=== PATIENT | female | born 1960 | race African-American/Black ===

== ENCOUNTER 2019-08-12 19:12 | Emergency (ER) | payer MEDICAID ==
[~2019-08-12] VITALS: Ht 167.6 cm; Wt 77.1 kg
[2019-08-12 19:25] VITALS: BP 152/76
--- NOTE | 2019-08-12 19:25 | NUR ---
ED Nurse Note: Walk-in patient with comp Addendum: 08/12/19 at 1949 by ELLIS ED Nurse Note: Walk-in patient with complaints of chest pain and SOB x 4 days,. Patient is ambulatory with steady gait and able to void.
--- NOTE | 2019-08-12 19:43 | Emergency Room Report ---
History of Present Illness General Chief Complaint: Dyspnea/Respdistress Source: Patient Present Illness [facility] Disclaimer: Please note that this report is being documented using DRAGON technology. This can lead to erroneous entry secondary to incorrect interpretation by the dictating instrument. HPI: 59-year-old female with a history of hypertension and emphysema presents for evaluation of cough and shortness of breath. Symptoms have been present for 4 to 5 days. She notes a nonproductive cough and orthopnea as well as nasal congestion, chest congestion, sore throat. She recently returned from a trip to [place] her symptoms began before that trip however. She denies any lower extremity pain or swelling. She has not been using her albuterol inhaler. Notes worsening cough and shortness of breath particularly when lying flat. She notes intermittent left-sided chest pain that is stabbing in quality. No history of ID or CAD. Has been using [id number] herbal remedies for congestion without significant relief. Denies fevers or chills. Did not receive a flu shot this year PMH: Emphysema PSH: section, breast augmentation Allergies: Denies Social Hx: Current smoker Allergies: Coded Allergies: No Known Allergies (Unverified , 08/12/19) Patient History Last Menstrual Period: 20 years ago Review of Systems All Other Systems: negative except mentioned in HPI Physical Exam Vital Signs Date Time Temp Pulse Resp B/P (MAP) Pulse Ox O2 Delivery O2 Flow Rate FiO2 08/12/19 19:22 99.0 99 16 152/76 (101) 95 Room Air General: Awake and alert, no acute distress HEENT: NC/AT. EOMI. Cardiovascular: RRR. S1 and S2 normal. No murmur appreciated Resp: Normal work of breathing. No wheezing. Intermittent cough throughout the exam. No crackles appreciated Abdomen: Abdomen is soft, nondistended. Nontender Skin: Intact. No abrasions, laceration or rash over the exposed skin MSK: Normal tone and bulk. Moving all extremities. No obvious deformity. Neuro: Awake and alert. Mentating appropriately. Medical Decision Making Diagnostic Impression: Primary Impression: Respiratory infection ER Course 59-year-old female presents for evaluation of cough, congestion and general URI symptoms for 4 to 5 days. Given the patient's chest pain we will obtain cardiac enzymes and a chest x-ray to rule out pneumonia. She is well-appearing otherwise with stable vital signs. Laboratory Tests Test 08/12/19 19:45 White Blood Count 6.8 K/UL (4.8-10.8) Red Blood Count 4.47 M/UL (4.20-5.40) Hemoglobin 13.7 G/DL (12.0-16.0) Hematocrit 39.5 % (37.0-47.0) Mean Corpuscular Volume 88 FL (80-99) Mean Corpuscular Hemoglobin 30.7 PG (27.0-31.0) Mean Corpuscular Hemoglobin Concent 34.7 G/DL (32.0-36.0) Red Cell Distribution Width 11.2 % (11.6-14.8) L Platelet Count 216 K/UL (150-450) Mean Platelet Volume 6.7 FL (6.5-10.1) Neutrophils (%) (Auto) 56.1 % (45.0-75.0) Lymphocytes (%) (Auto) 25.6 % (20.0-45.0) Monocytes (%) (Auto) 12.2 % (1.0-10.0) H Eosinophils (%) (Auto) 3.2 % (0.0-3.0) H Basophils (%) (Auto) 2.8 % (0.0-2.0) H D-Dimer 2.65 mg/L FEU (0.00-0.49) H Sodium Level 142 MMOL/L (136-145) Potassium Level 3.7 MMOL/L (3.5-5.1) Chloride Level 106 MMOL/L (98-107) Carbon Dioxide Level 32 MMOL/L (21-32) Anion Gap 4 mmol/L (5-15) L Blood Urea Nitrogen 11 mg/dL (7-18) Creatinine 0.8 MG/DL (0.55-1.30) Estimate Glomerular Filtration Rate > 60 mL/min (>60) Glucose Level 113 MG/DL (74-106) H Calcium Level 9.2 MG/DL (8.5-10.1) Total Bilirubin 0.2 MG/DL (0.2-1.0) Aspartate Amino Transferase (AST) 24 U/L (15-37) Alanine Aminotransferase (ALT) 35 U/L (12-78) Alkaline Phosphatase 86 U/L (46-116) Troponin I 0.000 ng/mL (0.000-0.056) Pro-B-Type Natriuretic Peptide 22 pg/mL (0-125) Total Protein 7.6 G/DL (6.4-8.2) Albumin 3.6 G/DL (3.4-5.0) Globulin 4.0 g/dL Albumin/Globulin Ratio 0.9 (1.0-2.7) L EKG Diagnostic Results EKG Time: 20:01 Rate: normal Rhythm: NSR ST Segments: no acute changes Other Impression Sinus rhythm, normal axis, normal intervals, there is a slight S1Q3T3 pattern undetermined significance. No ischemic changes otherwise. Rhythm Strip Diag. Results Rhythm Strip Time: 20:01 EP Interpretation: yes Rate: 90s Rhythm: NSR, no PVC's, no ectopy Chest X-Ray Diagnostic Results Chest X-Ray Diagnostic Results : Chest X-Ray Ordered: Yes # of Views/Limited/Complete: 1 View Indication: Shortness of Breath EP Interpretation: Yes Interpretation: no consolidation, no effusion, no pneumothorax, no acute cardiopulmonary disease Impression: No acute disease Electronically Signed by: Electronically signed by Dr. Praful Worrell Reevaluation Time: 22:02 Last Vital Signs Date Time Temp Pulse Resp B/P (MAP) Pulse Ox O2 Delivery O2 Flow Rate FiO2 08/12/19 19:22 99.0 99 16 152/76 (101) 95 Room Air Reevaluation Impression Labs show a normal white count without shift, normal renal function, negative troponin. D-dimer was elevated and the patient was intermittently tachycardic. Given her recent travel history of a CTA was ordered. No pulmonary embolism or pneumonia is found. She likely has a respiratory illness likely caused by a virus. Will be discharged home with symptomatic care and PMD follow-up. We discussed reasons to return to the emergency department. She was given copies of her CT results. She understands and agrees with treatment plan. Disposition: HOME, SELF-CARE Condition: Stable Praful Worrell MD Aug 12, 2019 19:43
[2019-08-12 20:05] LABS: BASOPHILS % (AUTO) 2.8 % (0.0-2.0); EOSINOPHILS % (AUTO) 3.2 % (0.0-3.0); HEMATOCRIT 39.5 % (37.0-47.0); HEMOGLOBIN 13.7 G/DL (12.0-16.0); LYMPHOCYTES % (AUTO) 25.6 % (20.0-45.0); MEAN CORPUSCULAR VOLUME 88 FL (80-99); MONOCYTES % (AUTO) 12.2 % (1.0-10.0); NEUTROPHILS % (AUTO) 56.1 % (45.0-75.0); PLATELET COUNT 216 K/UL (150-450); RED BLOOD COUNT 4.47 M/UL (4.20-5.40); RED CELL DISTRIBUTION WIDTH 11.2 % (11.6-14.8); WHITE BLOOD COUNT 6.8 K/UL (4.8-10.8)
[2019-08-12 20:14] LABS: ANION GAP 4 mmol/L (5-15); BLOOD UREA NITROGEN 11 mg/dL (7-18); CALCIUM 9.2 MG/DL (8.5-10.1); CARBON DIOXIDE 32 MMOL/L (21-32); CHLORIDE 106 MMOL/L (98-107); CREATININE 0.8 MG/DL (0.55-1.30); POTASSIUM 3.7 MMOL/L (3.5-5.1); SODIUM 142 MMOL/L (136-145)
[2019-08-12 20:36] LABS: ALANINE AMINOTRANSFERASE 35 U/L (12-78); ALBUMIN 3.6 G/DL (3.4-5.0); ALBUMIN/GLOBULIN RATIO 0.9 (1.0-2.7); ALKALINE PHOSPHATASE 86 U/L (46-116); ASPARTATE AMINO TRANSFERASE 24 U/L (15-37); BILIRUBIN,TOTAL 0.2 MG/DL (0.2-1.0)
--- NOTE | 2019-08-12 21:00 | NUR ---
ED Nurse Note: per patient request, iced water provided.
--- NOTE | 2019-08-12 21:10 | NUR ---
ED Nurse Note: Patient going over with health physics technician for CTA.
[2019-08-12] MEDS ORDERED: Omnipaue 350mg/ml 100ml vial INJ PRN (21:15)
--- NOTE | 2019-08-12 21:22 | NUR ---
ED Nurse Note: Patient returned to bed after CTA.
--- NOTE | 2019-08-12 22:00 | Diagnostic Imaging Report ---
Indication: Chest pain Technique: Continuous helical transaxial imaging of the chest was obtained from the thoracic inlet to the upper abdomen during rapid intravenous contrast administration. Arterial phase of enhancement obtained. Coronal 2-D reformats were also obtained and maximum intensity projection images in multiple planes. Study obtained in a Siemens sensation [address] Automatic Exposure Control was utilized. Total Dose length Product (DLP): 817.[address] Dose Index Volume (CTDIvol): 92.8 mGy Comparison: None Findings: The pulmonary artery is well opacified and shows no filling defects. There is no adenopathy, pleural or pericardial effusions are identified. There is no aortic dissection or aneurysm identified within the chest. Few peripheral paraseptal blebs noted. Cholecystectomy noted. IMPRESSION: No evidence of pulmonary embolus, aortic dissection or aneurysm. [facility] has communicated the preliminary results to the Emergency Department. Their findings are largely concordant with this report. The CT scanner at [facility] is accredited by the [employer] and the scans are performed using dose optimization techniques as appropriate to a performed exam including Automatic Exposure control.
[2019-08-12 22:13] VITALS: BP 152/76
--- NOTE | 2019-08-12 22:13 | NUR ---
ED Nurse Note: AFTER THOROUGH EVALUATIO, PATIENT CLEARED FOR DISCHARGE WITH NO S/S OF ACUTE DISTRESS. ID BAND REMOVED, IV REMOVED. PATIENT VERBALIZED UNDERSTANDING OF DISCHARGE INSTRUCTIONS. PATIENT IS A&OX4, AMBULATORY WITH STEADY GAIT. PATIENT DEPARTED WITH ALL BELONGINGS TO HOME VIA PERSONAL VEHICLE.
--- NOTE | 2019-08-13 10:53 | Diagnostic Imaging Report ---
Indication: Dyspnea Comparison: None A single view chest radiograph was obtained. Findings: Cardiomediastinal appearance is within normal limits for age. The lungs are clear. Pulmonary vascularity is appropriate. The diaphragmatic contour is smooth and costophrenic angles are sharp. No pleural effusions are identified. The bones are unremarkable. Impression: No acute findings
--- NOTE | 2019-08-13 16:14 | Cardiology Report ---
APPROVED REPORT EKG Measurement Heart [id number] Normal sinus rhythm T wave abnormality, consider inferior ischemia Abnormal ECG
== END 2019-08-12 22:14 | disposition home or self-care (01) ==
LOC: EMR 19:50
DX: J06.9 Acute upper respiratory infection, unspecified (principal); I10 Essential (primary) hypertension; F17.200 Nicotine dependence, unspecified, uncomplicated
CPT/HCPCS: 36415; 71045; 71275; 80053; 83880; 84484; 85025; 85379; 93005; Q9967; Z7502; 99284